=== PATIENT | female | born 2000 | race African-American/Black ===

== ENCOUNTER 2025-05-18 05:22 | Emergency (ER) | payer OTHER, MEDICAID ==
[~2025-05-18] VITALS: Ht 167.6 cm; Wt 75.0 kg
[2025-05-18 05:26] VITALS: O2SAT 100
[2025-05-18] MEDS: METOCLOPRAMIDE HCL 10MG/2ML VIAL IV ONE (06:09)
[2025-05-18] MEDS: SODIUM CHLORIDE 0.9% 1,000 ML IV ONE (06:09)
[2025-05-18 06:11] LABS: BASOPHILS % 0.4 % (0.0-2.0); EOSINOPHILS % 1.3 % (0.0-5.0); HEMATOCRIT. 40.9 % (36.0-48.0); HEMOGLOBIN. 14.1 g/dL (12.0-16.0); LYMPHOCYTES % 20.6 % (20.0-50.0); MEAN PLATELET VOLUME 7.3 fl (7.4-10.4); MONOCYTES % 6.9 % (2.0-8.0); NEUTROPHILS % 70.8 % (40.0-76.0); PLATELET 219 x1000/uL (130-400); RED BLOOD CELL COUNT 4.43 mill/uL (4.2-5.4); RED CELL DISTRIBUTION WIDTH 12.6 % (11.6-14.6)
[2025-05-18 06:26] LABS: HCG SCREEN NEGATIVE
[2025-05-18 06:29] LABS: CREATININE 0.9 mg/dL (0.6-1.0); TROPONIN I HIGH SENSITIVITY < 4 ng/L (3.0-34)
[2025-05-18 06:30] LABS: ETHANOL BLOOD < 10 mg/dL (<10); UREA NITROGEN BLOOD 13 mg/dL (9-23)
[2025-05-18 06:31] LABS: ASPARTATE AMINOTRANSFERASE 37 IU/L (<34)
[2025-05-18 06:32] LABS: BILIRUBIN DIRECT 0.2 mg/dL (<=3.0); BILIRUBIN TOTAL 0.5 mg/dL (0.1-1.0); PROTEIN TOTAL 7.2 g/dL (6.0-8.3)
[2025-05-18] MEDS ORDERED: IBUP-2030 MT (08:29)
[2025-05-18] MEDS ORDERED: ONDA-239 PO (08:29)
[2025-05-18 09:19] VITALS: BP 109/71; PULSE 86; RESP 16; TEMP 36.6; O2SAT 100
[2025-05-18] MEDS ORDERED: IOHEXOL-300 100 ML BOTTLE ONE (15:01)
== END 2025-05-18 09:26 | disposition home or self-care (01) ==
LOC: ER 05:22
DX: N94.6 Dysmenorrhea, unspecified (principal); R11.2 Nausea with vomiting, unspecified
CPT/HCPCS: 80076; 80048; 80320; 84703; 83690; 85025; 84484; 36415; 74177; 96361; 96374; 99285; Q9967; J2765; J7030; A4606; G0480